=== PATIENT | female | born 1970 | race Caucasian/White ===

== ENCOUNTER 2020-08-04 16:31 | Emergency (ER) | payer OTHER, SELFPAY ==
[2020-08-04 16:39] VITALS: BP 160/89; PULSE 108; RESP 20; TEMP 36.6; O2SAT 99
--- NOTE | 2020-08-04 16:43 | ED.GENADUL_ITS ---
Discharge Plan Disposition Patient Disposition: HOME Condition: Stable Discharge Details Clinical Impression: Accidental overdose Primary Care Provider: Unknown,Unknown ED Provider: Tabitha Salmeron Home Meds and New Rx's Prescriptions: Continued Humulin R Regular U-100 Insuln 100 UNIT/1 ML solution 100 unit IJ DIRECTED RF: 0 multivitamin [Daily Vitamin] 1 EACH tablet 1 ea PO DAILY RF: 0 (DME) subcutaneous insulin pump [Insulin Pump [id number]] 1 EACH misc 1 ea Miscellaneous ONCE Qty: 1 RF: 0 Humulin N NPH U-100 Insulin 100 unit/mL Suspension 12 - 14 unit SUBCUT DIRECTED RF: 0 Discharge Instructions Instructions: Hypoglycemia in a Person with Diabetes (ED) Additional Instructions: If you did take an extra dose of your insulin, we would expect you to be within the peak time of the medication effect currently. This will last until midnight. As discussed, please continue to check your sugar hourly. You may continue to eat. Poison control will be calling you at home to check in on you. If you begin feeling poorly, have significant drops in your sugar or other new/worsening symptoms please seek care urgently once again. Do not take any further insulin tonight. Please call primary care tomorrow to schedule follow- up appointment for reevaluation. Poison Control . Discharge Data Discharge Date/Time-TO BE ENTERED AT DEPARTURE: 08/04/20 20:55 Medical Decision Making Patient is a pleasant 49-year-old female presenting today with concern for possible repeat dosing of her long-acting insulin. Patient reports that this morning her sugar was 284. She took her short acting at this time. Typically takes her longer acting, Humulin N, around noon time. Patient sugars are typically fairly stable around 100. States that she may have been taken second dose around 2:37 PM. Again, of her typical 12 units of Humulin N. She did not take any short acting at this time. Reports that she did not take any short acting since early this morning. Was concerned that her glucose had dropped to around 240 prior to arrival. States that she has been very stressed and that her sugars have been running higher than typical. Assessment feeling anxious and nervous regarding her possible medication error, patient states she is otherwise feeling well. She has not had anything to eat as of yet today. Consulted with Poison Control. We discussed patients history and presentation. He advises that peak is 4-10hrs, would expect to see initial change in this in 1-2hrs. He advises that with this, after keeping an eye on the patient for the next few hours, particularly if is with her at home, patient could be d/c to home this evening. Advised monitoring for 3-4hrs if patient does well, can d/c to home with continued monitoring by patient and . He advised that Poison Control could also continue to check in with her tonight once she goes home. Exam, patient appears nontoxic. She does appear very anxious. She is noted to be slightly tachycardic and hypertensive, my suspicion is this is associated with her self-admitted anxiety. Her glucose is currently 268. Plan to continue to monitor the patient, will have her eat and complete every hour glucose checks. Patient eating and drinking. Glucose continue to be monitored. Actually went up initially with a max of 437 on the hourly checks. Came down slightly to 408 but this would be appropriate given when the patient ate. No significant drops. Spoke with Poison Control as we are approaching the 4 hours destinee. They will continue to toiuch base with the patient until midnight at which time, if she did give herself an extra dose of insulin, she would be past the peak effect. Phone numbers for the patient was given. Continue to reevaluate the patient. She continues to be asymptomatic. She will start her regular regimen of medications tomorrow morning. To continue to check her glucose hourly until least midnight. She is aware the poison control will be in touch. Her is bring her home where she resides with her and teenage son. States that she is typically awake until at least midnight secondary to their schedule. Return precautions were discussed at length. All of her questions and concerns were addressed and she is in agreement with this plan. HPI General Mode of arrival: ambulatory . Date/Time Provider Initiated Documentation: 08/04/20 16:33 . Limitations to Documentation: no limitations . Information obtained by: patient and RN notes reviewed . History of Present Illness 49 year old F presents to the emergency department with the chief complaint of possible accidental overdose of insulin, Quality is described as other (feels anxious, feeling well otherwise), Patient started experiencing this hour(s) and it has been constant. No relieving factors improve symptom(s), No exacerbating factors reported . Patient notes no other symptoms.. Patient did receive the following treatments prior to arrival, none (has not eaten today) Related Data Home Medications Medication Instructions Recorded Confirmed Humulin R Regular U-100 Insuln 100 unit IJ DIRECTED vial 08/03/12 08/04/20 multivitamin [Daily Vitamin] 1 ea PO DAILY tab 09/05/12 08/04/20 subcutaneous insulin pump [Insulin #1 ea 12/19/13 Pump [id number]] Humulin N NPH U-100 Insulin 12 - 14 unit SUBCUT DIRECTED 08/04/20 08/04/20 Allergies Allergy/AdvReac Type Severity Reaction Status Date / Time insulin zinc beef Allergy Severe Hives Unverified 08/04/20 16:53 [From Insulin Lente Beef] sertraline HCl [From Zoloft] AdvReac Unknown dryness Unverified 08/04/20 16:53 Lente Insulin Allergy Severe hives Uncoded 08/04/20 16:53 Review of Systems Constitutional Constitutional: Reports as per HPI, Denies chills, Denies fever(s) and Denies headache(s) ENT Ears, Nose, Mouth, and Throat: Denies headache(s) Cardiovascular Cardiovascular: Reports as per HPI, Denies chest pain and Denies dyspnea Respiratory Respiratory: Reports as per HPI, Denies cough and Denies dyspnea Neurologic Neurologic: Denies headache(s) PFSH Family History Mother Essential hypertension Father No problems noted. Grandfather Essential hypertension maternal grandfather Grandfather No problems noted. Grandmother Essential hypertension maternal grandmother Grandmother No problems noted. Son No problems noted. Social History Smoking/Tobacco Use Status: Never Smoking risk assessment performed?: Yes Alcohol Intake: current Alcohol Intake frequency: holidays/special occasions only Alcohol type: wine Drug use: Never Substance use type: does not use Do you feel safe at home: Yes Do you feel safe in your relationship?: Yes Exam Const General: cooperative, healthy appearing, comfortable, no acute distress and anxious Nutritional Appearance: well nourished and overweight Orientation: alert and awake Resp Effort & Inspection: normal respiratory effort, able to speak in complete sentences and no respiratory distress Auscultation: clear to auscultation bilaterally Cardio Rate: regular rate Rhythm: regular rhythm Heart Sounds: S1 normal and S2 normal Skin General skin exam: no rashes or lesions noted Neuro General: patient alert and patient awake Cognition: normal cognition Speech: speech normal Gait: normal gait Psych Appearance: grossly normal and well kempt Mental Status: mental status grossly normal Speech and Movement: speech and movement normal
[2020-08-04 16:48] VITALS: RESP 18
[2020-08-04 20:00] VITALS: BP 132/77; PULSE 87; RESP 16; TEMP 36.6; O2SAT 99
== END 2020-08-04 20:55 | disposition home or self-care (01) ==
PROVIDERS: Emergency Provider Physician Assistant
DX: T38.3X1A Poisoning by insulin and oral hypoglycemic [antidiabetic] drugs, accidental (unintentional), initial encounter (principal); F41.9 Anxiety disorder, unspecified; R00.0 Tachycardia, unspecified
CPT/HCPCS: 36415; 36416; 82962; 99283